=== PATIENT | male | born 1945 | race Caucasian/White ===

== ENCOUNTER → 2024-02-26 09:26 | Outpatient (REF) | payer MEDICARE, SELFPAY ==
[2024-02-26 10:41] LABS: % Basophils 0.9 % (0-2); % Eosinophils 3.5 % (0-6); % Immature Granulocytes 0.4 % (0-0.5); % Lymphocytes 31.5 % (20.5-51.1); % Monocytes 7.7 % (1.7-9.3); Absolute Eosinophils 0.2 10^3/uL (0-0.7); Absolute Lymphocytes 1.4 10^3/uL (1.2-3.4); Absolute Monocytes 0.4 10^3/uL (0.1-0.6); Absolute Neutrophils 2.6 10^3/uL (1.4-6.5); Hematocrit 36.7 % (39.0-52.0); Hemoglobin 11.9 g/dL (13.0-18.0); Mean Corp Hgb Conc. 32.4 g/dL (33.0-37.0); Mean Corpuscular Hgb 28.4 pg (27.0-31.0); Mean Corpuscular Volume 87.6 fL (80.0-94.0); Mean Platelet Volume 10.8 fL (7.4-10.4); Nucleated Red Blood Cells % 0 % (-); Platelet Count 146 10^3/uL (130-400); Red Blood Cell Count 4.19 10^6/uL (4.70-6.10); Red Cell Dist. Width 15.7 % (11.5-14.5); White Blood Cell Count 4.6 10^3/uL (4.8-10.8)
[2024-02-26 10:57] LABS: Urine Albumin Negative (Neg - Trace); Urine Bilirubin Negative (Negative); Urine Character Clear (Clear); Urine Color Yellow; Urine Glucose Negative (Negative); Urine Ketone Negative (Negative); Urine Leukocyte Negative (Negative); Urine Nitrite Negative (Negative); Urine Occult Blood Negative (Negative); Urine Urobilinogen Negative (Neg - 1+)
[2024-02-26 14:36] LABS: ALT (SGPT) 18 U/L (0-50); AST (SGOT) 24 U/L (17-59); Albumin 3.6 g/dl (3.5-5.0); Alkaline Phosphatase 71 U/L (38-126); Blood Urea Nitrogen 20 mg/dl (9-20); Calcium 9.1 mg/dl (8.4-10.2); Carbon Dioxide 24 mmol/L (22-30); Chloride 111 mmol/L (98-107); Glucose 106 mg/dl (70-99); HDL Cholesterol 53 mg/dl; LDL Cholesterol, Calculated 74 mg/dl; Magnesium 1.9 mg/dl (1.6-2.3); Phosphorus 3.2 mg/dl (2.5-4.5); Potassium 4.6 mmol/L (3.5-5.1); Sodium 137 mmol/L (135-145); Total Bilirubin 0.3 mg/dl (0.2-1.3); Total Cholesterol 140 mg/dl (50-199); Total Protein 6.5 g/dl (6.3-8.2); Triglyceride 67 mg/dl (10-149); Uric Acid 3.9 mg/dl (3.5-8.5); Very Low Density Lipoprotein 13 mg/dl (0-30); eGFR > 60.00
[2024-02-26 15:23] LABS: Creatine Phosphokinase 75 U/L (55-170)
== END ==
LOC: RAD 09:26
PROVIDERS: ATTENDING PHYSICIAN Family Medicine; REFERRING PHYSICIAN Internal Medicine Endocrinology, Diabetes & Metabolism
DX: I10 Essential (primary) hypertension (principal); Z00.00 Encounter for general adult medical examination without abnormal findings; M79.672 Pain in left foot
CPT/HCPCS: 36415; 73630; 73650; 80053; 80061; 81003; 82550; 83735; 84100; 84550; 85025

== ENCOUNTER 2024-03-07 23:26 | Emergency (ER) | payer MEDICARE, SELFPAY ==
[2024-03-07 23:34] VITALS: BP 146/82
--- NOTE | 2024-03-08 01:05 | ED.GENMED ---
History of Present Illness
General
Chief Complaint: Skin Problem
Source: patient and records
Exam Limitations: none
Time Seen by Provider: 03/08/24 00:44
Nursing documentation reviewed up to this point in time: agreed with
Travel History
Have you had any contact with someone who has COVID-19?: No
Do you have any symptoms of coronavirus? Fever > 100 degrees, chills, cough, shortness of breath, sore throat, loss of taste or smell, muscle aches, or headache?: No
History of Present Illness
History of Present Illness:
Patient is a pleasant 78-year-old male presents with an itchy rash she believes started after eating some seafood at a [place] restaurant, does not need to try his restaurants very often, he has no problem with seafood when he eats it at home when
he cooks it, no tongue swelling no wheeze no vomiting, rashes on his trunk arms and legs itchy raised tried some Tylenol without much relief
Past History
Past History
ED Past Medical History: HTN, Hypercholesterolemia, Hypothyroidism and Other (Diverticulitis )
ED Past Surgical History: Urological (Prostate surgery but was not removed)
Social History
Tobacco: Former smoker
Alcohol: Occasional
Drug: None
Personal:
Living: with family
Employment: Retired
Family History
Family History: Other (Noncontributory)
Review of Systems
Review of Systems
All Other Systems: Not applicable
Constitutional: Denies fever or fatigue
Respiratory: Denies trouble breathing
Cardiac: Denies chest pain
ABD/GI: Denies abdominal pain
Skin: Reports itching
Phy Exam
Physical Exam
Physical Exam:
Physical Exam
General: no apparent distress, not acutely ill
Neck: Normal size tongue
Lungs: no acute respiratory distress. No wheezing
Neuro: alert and oriented. no focal neurological deficits
Skin: Diffuse raised erythematous pruritic rash
Psychiatric: well kept. interactive and cooperative
Extremities: no edema.
Course
Orders/Labs/Results
Orders:
Orders
03/08/24 01:02
Diphenhydramine [Benadryl] 25 mg PO NOW STA
Prednisone [Deltasone] 50 mg PO NOW STA
Vital Signs
Initial and Last Documented VS:
Initial Vital Signs
Temp Pulse Resp BP Pulse Ox
97.7 F 67 21 146/82 96
03/07/24 23:34 03/07/24 23:34 03/07/24 23:34 03/07/24 23:34 03/07/24 23:34
Last Documented Vital Signs
Temp Pulse Resp BP Pulse Ox
97.7 F 67 21 146/82 96
03/07/24 23:34 03/07/24 23:34 03/07/24 23:34 03/07/24 23:34 03/07/24 23:34
MDM/Problems Addressed
Differential Diagnosis Includes:
Allergic reaction viral exanthem nonspecific rash
MDM/Problems Addressed:
Itchy rash
Chronic conditions affecting care:
Prior similar episode
*Pulse Oximetry
Patient hypoxic: no
*Critical Care Note
Total Time (30-74mins, 75-104mins- exclusive of procedures): Not Applicable
Update Note
Update Note:
Appears allergic versus viral, does not appear systemically ill, will treat with a short burst of steroids antihistamines
ED Attending Note
-
Portions of this chart may have been created with voice recognition software.� Occasional wrong word or��sound alike� substitutions may have occurred due to the inherent limitations of voice recognition software.
Discharge Plan
Departure
Patient Disposition: Home (Routine Discharge)
Date of Disposition: 03/08/24
Time of Disposition: 01:03
Patient with high blood pressure during this ER visit?: No
Condition: Good
Discharge Problem:
Rash
Instructions: Allergic Reaction ED
Prescriptions:
New
diphenhydramine HCl [Benadryl] 25 mg capsule
25 mg PO TID PRN (Reason: itching) Qty: 20 0RF
methylprednisolone [Medrol (Richard)] 4 mg tablets,dose pack
See Rx Instructions .ROUTE .COMPLEX Qty: 21 0RF
Rx Instructions:
for 6 days
No Action
levothyroxine [Synthroid] 175 MCG tablet
175 mcg PO DAILY
rosuvastatin [Crestor] 20 MG tablet
20 mg PO DAILY
py-nco-xswmz-[id number]-[id number] [Centrum Silver Ultra Men's] 1 EACH tablet
1 ea PO DAILY
aspirin 325 MG tablet
325 mg PO ONCE
aspirin 325 MG tablet
325 mg PO DAILY
clopidogrel 75 MG tablet
600 mg PO ONCE
omega 0-xjc-iii-fish oil [Fish Oil] 1,000 MG capsule,delayed release(DR/EC)
2,000 mg PO DAILY
prednisone 20 MG tablet
40 mg PO DAILY Qty: 10 0RF
Rx Instructions:
40mg daily for 3 days, then 20mg daily for 2 days. Take with food.
cetirizine 10 MG tablet
10 mg PO DAILY Qty: 14 0RF
cetirizine 10 MG tablet
10 mg PO DAILY Qty: 20 0RF
polyethylene glycol 3350 238 GM powder
17 gm PO DAILY Qty: 1 0RF
doxycycline hyclate 100 MG capsule
100 mg PO Q12 Qty: 14 0RF
Discharge Date and Time
Print Language: ISRAELI
[2024-03-08] MEDS: BENADRYL 25 MG PO (01:31)
[2024-03-08] MEDS: DELTASONE 50 MG PO (01:31)
[2024-03-08 01:47] VITALS: BP 152/88
== END 2024-03-08 01:48 | disposition home or self-care (01) ==
LOC: EMR 23:26
PROVIDERS: EMERGENCY PHYSICIAN Emergency Medicine; FAMILY PHYSICIAN Family Medicine
DX: R21 Rash and other nonspecific skin eruption (principal); T78.40XA Allergy, unspecified, initial encounter; Z87.891 Personal history of nicotine dependence
CPT/HCPCS: 99283

== ENCOUNTER 2024-03-20 03:14 | Emergency (ER) | payer MEDICARE, SELFPAY ==
[2024-03-20 03:31] VITALS: BP 166/75
--- NOTE | 2024-03-20 06:58 | ED.GENMED ---
History of Present Illness
General
Chief Complaint: Allergic Reaction
Source: patient
Time Seen by Provider: 03/20/24 06:46
Travel History
Have you had any contact with someone who has COVID-19?: No
Do you have any symptoms of coronavirus? Fever > 100 degrees, chills, cough, shortness of breath, sore throat, loss of taste or smell, muscle aches, or headache?: No
History of Present Illness
History of Present Illness:
78-year-old male presents to the emergency room complaining of a itchy rash. Patient was seen here for similar complaint on March 08. He was treated with Benadryl and steroids. There was some mixup send patient did not start his steroids until 2 or
3 days ago. He is continue to have a rash intermittently. This morning he woke up and noted that the rash seemed to be worse than previous. He has not taken any Benadryl today. No associated shortness of breath, lip or tongue swelling.
Past History
Past History
ED Past Medical History: HTN, Hypercholesterolemia, Hypothyroidism and Other (Diverticulitis )
ED Past Surgical History: Urological (Prostate surgery but was not removed)
Social History
Tobacco: Former smoker
Alcohol: Occasional
Drug: None
Personal:
Living: with family
Employment: Retired
Family History
Family History: Other (Noncontributory)
Phy Exam
Physical Exam
Physical Exam:
General: Awake, Alert, Oriented X3. No acute distress.
Vitals: unremarkable
Head: Atraumatic
Eyes: Pupils equal, EOMI
Throat: Airway intact, no exudates
Neck: Trachea midline
Lungs: Clear and equal b/l
Heart: Regular rate, no murmurs
Neuro: Nonfocal
Skin: Warm, dry, diffuse urticarial type rash
Extremities: pulses equal b/l, no edema
Course
Orders/Labs/Results
Orders:
Orders
03/20/24 06:58
Diphenhydramine [Benadryl] 25 mg PO NOW STA
Vital Signs
Initial and Last Documented VS:
Initial Vital Signs
Temp Pulse Resp BP Pulse Ox
97.7 F 69 20 166/75 96
03/20/24 03:31 03/20/24 03:31 03/20/24 03:31 03/20/24 03:31 03/20/24 03:31
Last Documented Vital Signs
Temp Pulse Resp BP Pulse Ox
97.7 F 69 16 169/79 99
03/20/24 03:31 03/20/24 07:06 03/20/24 07:06 03/20/24 07:06 03/20/24 07:06
MDM/Problems Addressed
Differential Diagnosis Includes:
Hives from allergic reaction, viral exanthem, hives from a recent viral illness
MDM/Problems Addressed:
Patient treated with Benadryl. No evidence for a anaphylactic or airway involvement reaction. Recommend Benadryl every 6 hours. Follow-up with Derm as an outpatient
*Pulse Oximetry
Patient hypoxic: no
*Critical Care Note
Total Time (30-74mins, 75-104mins- exclusive of procedures): Not Applicable
ED Attending Note
-
Portions of this chart may have been created with voice recognition software.� Occasional wrong word or��sound alike� substitutions may have occurred due to the inherent limitations of voice recognition software.
Discharge Plan
Departure
Patient Disposition: Home (Routine Discharge)
Date of Disposition: 03/20/24
Time of Disposition: 07:36
Patient with high blood pressure during this ER visit?: Yes
Condition: Good
Discharge Problem:
Urticaria
Instructions: Hives (DC)
Prescriptions:
No Action
levothyroxine [Synthroid] 175 MCG tablet
175 mcg PO DAILY
rosuvastatin [Crestor] 20 MG tablet
20 mg PO DAILY
jb-eqb-gtzut-X5-[id number]-moihwn [Centrum Silver Ultra Men's] 1 EACH tablet
1 ea PO DAILY
aspirin 325 MG tablet
325 mg PO ONCE
aspirin 325 MG tablet
325 mg PO DAILY
clopidogrel 75 MG tablet
600 mg PO ONCE
omega 1-egc-tht-fish oil [Fish Oil] 1,000 MG capsule,delayed release(DR/EC)
2,000 mg PO DAILY
prednisone 20 MG tablet
40 mg PO DAILY Qty: 10 0RF
Rx Instructions:
40mg daily for 3 days, then 20mg daily for 2 days. Take with food.
cetirizine 10 MG tablet
10 mg PO DAILY Qty: 14 0RF
cetirizine 10 MG tablet
10 mg PO DAILY Qty: 20 0RF
polyethylene glycol 3350 238 GM powder
17 gm PO DAILY Qty: 1 0RF
doxycycline hyclate 100 MG capsule
100 mg PO Q12 Qty: 14 0RF
diphenhydramine HCl [Benadryl] 25 mg capsule
25 mg PO TID PRN (Reason: itching) Qty: 20 0RF
methylprednisolone [Medrol (Richard)] 4 mg tablets,dose pack
See Rx Instructions .ROUTE .COMPLEX Qty: 21 0RF
Rx Instructions:
for 6 days
Referrals:
Jered Truong DO [Family Provider] -
Adriel Ramirez MD [Active] -
Activity Restrictions/Additional Instructions:
You should take Benadryl 25mg every six hours as needed for the itching. The rash may take several days to go away. 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
Interventions
Interventions:
*General Assessment Last Done: 03/20/24 07:06
ED- Fall Risk Assessment Last Done: 03/20/24 07:06
*ED COVID-19 Vaccine History Last Done: 03/20/24 07:06
*Nursing Disposition Last Done: 03/20/24 07:56
ED-Skin Assessment Last Done: 03/20/24 07:06
Discharge Date and Time
Discharge Date/Time: 03/20/24 07:57
Print Language: IRISH
[2024-03-20 07:04] VITALS: BMI 39.2
[2024-03-20 07:06] VITALS: BP 169/79
[2024-03-20] MEDS: BENADRYL 25 MG PO (07:11)
== END 2024-03-20 07:57 | disposition home or self-care (01) ==
LOC: EMR 03:14
PROVIDERS: EMERGENCY PHYSICIAN Emergency Medicine; FAMILY PHYSICIAN Family Medicine
DX: L50.0 Allergic urticaria (principal); I10 Essential (primary) hypertension; E78.00 Pure hypercholesterolemia, unspecified; E03.9 Hypothyroidism, unspecified; K57.92 Diverticulitis of intestine, part unspecified, without perforation or abscess without bleeding; Z87.891 Personal history of nicotine dependence
CPT/HCPCS: 99281

== ENCOUNTER → 2024-08-19 11:05 | Outpatient (REF) | payer MEDICARE, SELFPAY ==
[2024-08-19 12:44] LABS: % Basophils 0.5 % (0-2); % Immature Granulocytes 0.7 % (0-0.5); % Lymphocytes 30.3 % (20.5-51.1); % Monocytes 7.5 % (1.7-9.3); Absolute Eosinophils 0.2 10^3/uL (0-0.7); Absolute Lymphocytes 1.7 10^3/uL (1.2-3.4); Absolute Monocytes 0.4 10^3/uL (0.1-0.6); Absolute Neutrophils 3.2 10^3/uL (1.4-6.5); Hematocrit 41.7 % (39.0-52.0); Hemoglobin 13.9 g/dL (13.0-18.0); Mean Corp Hgb Conc. 33.3 g/dL (33.0-37.0); Mean Corpuscular Volume 90.1 fL (80.0-94.0); Nucleated Red Blood Cells % 0 % (-); Platelet Count 196 10^3/uL (130-400); Red Blood Cell Count 4.63 10^6/uL (4.70-6.10); Red Cell Dist. Width 13.6 % (11.5-14.5); Reticulocyte Count 1.6 % (0.4-2.8); White Blood Cell Count 5.6 10^3/uL (4.8-10.8)
[2024-08-19 14:22] LABS: Free T4 0.94 ng/dl (0.78-2.19); HDL Cholesterol 53 mg/dl; Iron 92 ug/dl (49-181); LDL Cholesterol, Calculated 188 mg/dl; Total Cholesterol 261 mg/dl (50-199); Triglyceride 102 mg/dl (10-149); Very Low Density Lipoprotein 20 mg/dl (0-30); Vitamin D, 25-OH*** 32.4 ng/mL (30-80)
[2024-08-19 14:28] LABS: IgA 433 mg/dl (70-400)
[2024-08-19 14:32] LABS: Percent Saturation 28 % (20-50); Total Iron Binding Capacity 328 ug/dl (261-462)
[2024-08-19 14:35] LABS: TSH 3.93 uIU/ml (0.47-4.68)
[2024-08-19 14:47] LABS: Ferritin 21.8 ng/ml (17.9-464.0)
[2024-08-20 23:22] LABS: Haptoglobin 135 mg/dL (30-200)
[2024-08-21 13:30] LABS: tTG IgA Antibody 6.4 EU/ml (0-19); tTG IgG Antibody 18.3 EU/ml (0-19)
[2024-08-21 17:54] LABS: Endomysial IgA Antibody Titer <1:10 (<1:10)
[2024-08-21 21:41] LABS: Albumin 3.97 g/dL (3.75-5.01); Alpha 1 Globulin 0.25 g/dL (0.19-0.46); Alpha 2 Globulin 0.67 g/dL (0.48-1.05); SPEP IFE Reflex Not Done; Total Protein-Electrophoresis 6.7 g/dL (6.3-8.2)
== END ==
LOC: REG 11:05
PROVIDERS: ATTENDING PHYSICIAN Urology; FAMILY PHYSICIAN Family Medicine; OTHER PHYSICIAN Internal Medicine Cardiovascular Disease; OTHER PHYSICIAN Internal Medicine Endocrinology, Diabetes & Metabolism
DX: E78.5 Hyperlipidemia, unspecified (principal); I10 Essential (primary) hypertension; R97.20 Elevated prostate specific antigen [PSA]; E55.9 Vitamin D deficiency, unspecified; E03.9 Hypothyroidism, unspecified
CPT/HCPCS: 36415; 80061; 82306; 82728; 82784; 83010; 83516; 83540; 83550; 84153; 84154; 84155; 84165; 84439; 84443; 85025; 85045; 86231

== ENCOUNTER → 2024-08-20 11:16 | Outpatient (REF) | payer MEDICARE, SELFPAY | LOC: REG 11:16 | PROVIDERS: ATTENDING PHYSICIAN Family Medicine | DX: E78.5 Hyperlipidemia, unspecified (principal) | CPT/HCPCS: 83520 ==

== ENCOUNTER → 2024-12-11 12:16 | Outpatient (REF) | payer MEDICARE, SELFPAY ==
[2024-12-11 13:34] LABS: ALT (SGPT) 21 U/L (0-50); AST (SGOT) 24 U/L (17-59); Albumin 4.5 g/dl (3.5-5.0); Alkaline Phosphatase 91 U/L (38-126); Blood Urea Nitrogen 23 mg/dl (9-20); Calcium 9.7 mg/dl (8.4-10.2); Carbon Dioxide 27 mmol/L (22-30); Chloride 102 mmol/L (98-107); Glucose 84 mg/dl (70-99); Sodium 137 mmol/L (135-145); Total Bilirubin 0.7 mg/dl (0.2-1.3); Total Protein 7.3 g/dl (6.3-8.2); eGFR > 60.00
[2024-12-11 13:47] LABS: Glycohemoglobin (HgbA1c) 5.4 % (4.0-5.6)
[2024-12-11 13:52] LABS: Vitamin D, 25-OH*** 32.9 ng/mL (30-80)
[2024-12-11 14:05] LABS: TSH 5.88 uIU/ml (0.47-4.68)
== END ==
LOC: REG 12:16
PROVIDERS: ATTENDING PHYSICIAN Internal Medicine Endocrinology, Diabetes & Metabolism; FAMILY PHYSICIAN Family Medicine; REFERRING PHYSICIAN Internal Medicine Cardiovascular Disease
DX: E03.9 Hypothyroidism, unspecified (principal); E55.9 Vitamin D deficiency, unspecified; R73.03 Prediabetes
CPT/HCPCS: 36415; 80053; 82306; 83036; 84443

== ENCOUNTER → 2025-02-10 11:13 | Outpatient (REF) | payer MEDICARE, SELFPAY ==
[2025-02-10 12:03] LABS: % Basophils 0.6 % (0-2); % Eosinophils 2.4 % (0-6); % Immature Granulocytes 0.3 % (0-0.5); % Lymphocytes 27.6 % (20.5-51.1); % Monocytes 7.4 % (1.7-9.3); % Neutrophils 61.7 % (42.2-75.2); Absolute Eosinophils 0.2 10^3/uL (0-0.7); Absolute Lymphocytes 1.7 10^3/uL (1.2-3.4); Absolute Monocytes 0.5 10^3/uL (0.1-0.6); Absolute Neutrophils 3.8 10^3/uL (1.4-6.5); Hematocrit 42.9 % (39.0-52.0); Hemoglobin 14.4 g/dL (13.0-18.0); Mean Corp Hgb Conc. 33.6 g/dL (33.0-37.0); Mean Corpuscular Hgb 30.9 pg (27.0-31.0); Mean Corpuscular Volume 92.1 fL (80.0-94.0); Mean Platelet Volume 10.2 fL (7.4-10.4); Nucleated Red Blood Cells % 0 % (-); Platelet Count 206 10^3/uL (130-400); Red Blood Cell Count 4.66 10^6/uL (4.70-6.10); White Blood Cell Count 6.2 10^3/uL (4.8-10.8)
[2025-02-10 12:09] LABS: Urine Albumin 2+ (Neg - Trace); Urine Bilirubin Negative (Negative); Urine Character Clear (Clear); Urine Color Yellow; Urine Glucose Negative (Negative); Urine Ketone Negative (Negative); Urine Leukocyte Negative (Negative); Urine Nitrite Negative (Negative); Urine Occult Blood Negative (Negative); Urine Urobilinogen Negative (Neg - 1+)
[2025-02-10 12:26] LABS: Urine Red Blood Cell 0-2 /HPF (0-2)
[2025-02-10 12:27] LABS: Urine Bacteria Few (Negative)
[2025-02-10 14:21] LABS: PSA, Total - Screen 7.49 ng/ml (0.0-4.0)
[2025-02-10 14:24] LABS: ALT (SGPT) 17 U/L (0-50); AST (SGOT) 21 U/L (17-59); Albumin 4.4 g/dl (3.5-5.0); Alkaline Phosphatase 78 U/L (38-126); Blood Urea Nitrogen 19 mg/dl (9-20); Calcium 9.5 mg/dl (8.4-10.2); Carbon Dioxide 25 mmol/L (22-30); Chloride 107 mmol/L (98-107); Glucose 95 mg/dl (70-99); HDL Cholesterol 47 mg/dl; LDL Cholesterol, Calculated 199 mg/dl; Phosphorus 3.3 mg/dl (2.5-4.5); Potassium 4.8 mmol/L (3.5-5.1); Sodium 141 mmol/L (135-145); Total Bilirubin 0.5 mg/dl (0.2-1.3); Total Cholesterol 264 mg/dl (50-199); Total Protein 7.2 g/dl (6.3-8.2); Triglyceride 93 mg/dl (10-149); Uric Acid 3.7 mg/dl (3.5-8.5); Very Low Density Lipoprotein 18 mg/dl (0-30); eGFR > 60.00
== END ==
LOC: REG 11:13
PROVIDERS: ATTENDING PHYSICIAN Family Medicine; OTHER PHYSICIAN Internal Medicine Cardiovascular Disease; OTHER PHYSICIAN Internal Medicine Endocrinology, Diabetes & Metabolism; OTHER PHYSICIAN Urology
DX: I10 Essential (primary) hypertension (principal); E78.5 Hyperlipidemia, unspecified; Z12.5 Encounter for screening for malignant neoplasm of prostate; E03.9 Hypothyroidism, unspecified
CPT/HCPCS: 36415; 80053; 80061; 81003; 81015; 83735; 84100; 84439; 84443; 84550; 85025; G0103

== ENCOUNTER → 2025-05-13 10:35 | Outpatient (REF) | payer MEDICARE, SELFPAY ==
[2025-05-13 13:45] LABS: HDL Cholesterol 44 mg/dl
[2025-05-13 13:51] LABS: LDL Cholesterol, Calculated 79 mg/dl; Very Low Density Lipoprotein 12 mg/dl (0-30)
== END ==
LOC: REG 10:35
PROVIDERS: ATTENDING PHYSICIAN Internal Medicine Cardiovascular Disease; FAMILY PHYSICIAN Family Medicine
DX: E78.00 Pure hypercholesterolemia, unspecified (principal)
CPT/HCPCS: 36415; 80061